=== PATIENT | male | born 1995 | race Caucasian/White ===

== ENCOUNTER 2021-02-23 14:27 | Emergency (ER) | payer OTHER ==
[~2021-02-23] VITALS: Ht 177.8 cm; Wt 99.8 kg
[2021-02-23] MEDS ORDERED: CEPHALEXIN500 MG PO (15:39)
[2021-02-23 16:15] VITALS: BP 124/68
== END 2021-02-23 16:16 | disposition home or self-care (01) ==
LOC: M.ERS 14:27
DX: S01.81XA Laceration without foreign body of other part of head, initial encounter (principal); V49.9XXA Car occupant (driver) (passenger) injured in unspecified traffic accident, initial encounter; Y93.I9 Activity, other involving external motion; Y92.413 State road as the place of occurrence of the external cause; Y99.8 Other external cause status